=== PATIENT | female | born 1970 | race Two or more races ===

== ENCOUNTER 2016-09-21 18:35 | Emergency (ER) | payer SELFPAY ==
[~2016-09-21] VITALS: Ht 157.5 cm; Wt 78.0 kg
[2016-09-21] MEDS ORDERED: IBUPROFEN 600MG TABLET PO ONE (19:30)
[2016-09-21 19:48] VITALS: BP 132/98
== END 2016-09-21 22:40 | disposition home or self-care (01) ==
LOC: ER 18:55
DX: M25.512 Pain in left shoulder (principal)
CPT/HCPCS: 73030; 73080; 81025; 99284